=== PATIENT | female | born 1990 | race Caucasian/White ===

== ENCOUNTER → 2020-10-04 16:09 | Outpatient (CLI) | payer SELFPAY ==
[2020-10-06 14:13] LABS: QuantiFERON Mitogen Value >10.00 IU/mL (.); QuantiFERON Nil Value 0.13 IU/mL (.); QuantiFERON TB Gold Plus Negative (Negative); QuantiFERON TB1 Ag Value <0.00 IU/mL (.); QuantiFERON TB2 Ag Value <0.00 IU/mL (.)
== END ==
PROVIDERS: Referring Provider Physician Assistant; Visit Provider Physician Assistant
DX: Z02.1 Encounter for pre-employment examination (principal)
CPT/HCPCS: 36415; 86480

== ENCOUNTER → 2021-06-04 10:55 | Outpatient (CLI) | payer OTHER, SELFPAY ==
[2021-06-04 11:59] LABS: COVID19 -Nasal RAPID Negative (Negative)
== END ==
PROVIDERS: Visit Provider Physician Assistant
DX: Z20.822 Contact with and (suspected) exposure to COVID-19 (principal)
CPT/HCPCS: 87635